=== PATIENT | male | born 1945 | race Caucasian/White ===

== ENCOUNTER 2019-07-21 12:58 | Observation (INO) | payer MEDICARE, OTHER ==
[~2019-07-21] VITALS: Ht 175.3 cm; Wt 70.0 kg
[~2019-07-21 12:58] MED LIST: ASPI81TA52 PO; ATOR20TA66 PO
[2019-07-21 13:54] LABS: BASOPHILS % (AUTO) 0.5 % (0-1); EOSINOPHILS # (AUTO) 0.1 X10'3 (0-0.9); EOSINOPHILS % (AUTO) 0.9 % (0-6); HEMATOCRIT 44.3 % (42.0-52.0); HEMOGLOBIN 15.2 g/dl (14.0-17.9); LYMPHOCYTES # (AUTO) 2.6 X10'3 (1.1-4.8); LYMPHOCYTES % (AUTO) 33.2 % (21-51); MEAN CORPUSCULAR HEMOGLOBIN 31.9 PG (27.0-31.0); MEAN CORPUSCULAR HGB CONC 34.2 g/dL (33.0-36.5); MEAN CORPUSCULAR VOLUME 93.1 FL (78-98); MEAN PLATELET VOLUME 7.9 FL (7.4-10.4); MONOCYTES # (AUTO) 0.7 X10'3 (0-0.9); MONOCYTES % (AUTO) 8.9 % (2-12); NEUTROPHILS # (AUTO) 4.5 X10'3 (1.8-7.7); NEUTROPHILS % (AUTO) 56.5 % (42-75); PLATELET COUNT 231 X10'3 (140-440); RED BLOOD COUNT 4.76 X10'6 (4.70-6.10)
[2019-07-21 14:06] LABS: ALANINE AMINOTRANSFERASE 37 U/L (12-78); ALBUMIN 4.1 G/DL (3.4-5.0); ALBUMIN/GLOBULIN RATIO 1.2 (1.1-1.5); ALKALINE PHOSPHATASE 86 IU/L (46-116); ANION GAP 4 (8-16); ASPARTATE AMINO TRANSFERASE 32 U/L (10-37); BILIRUBIN,TOTAL 0.7 MG/DL (0.1-1.0); BLOOD UREA NITROGEN 22 MG/DL (7-18); BUN/CREATININE RATIO 19.5 (5.4-32.0); CALCIUM 8.9 MG/DL (8.5-10.1); CHLORIDE 106 MMOL/L (99-107); CREATININE 1.13 MG/DL (0.60-1.10); GLUCOSE 85 MG/DL (70-104); POTASSIUM 4.5 MMOL/L (3.5-5.1); SODIUM 139 MMOL/L (135-145); TOTAL CARBON DIOXIDE 29.5 MMOL/L (24-32); TOTAL PROTEIN 7.4 G/DL (6.4-8.2); eGFR 64 ML/MIN
[2019-07-21] MEDS ORDERED: nitroGLYCERIN 1gm ointment UD TP ONE (15:45)
[2019-07-21] MEDS ORDERED: potassium Cl 20 mEq SR tablet PO PRN ×2 (15:55)
[2019-07-21] MEDS ORDERED: ipratropium/albuterol 3ml nebule NEB PRN (15:55)
[2019-07-21] MEDS ORDERED: magnesium 4gm in 100ml NS 100 ML IV PRN (15:55)
[2019-07-21] MEDS ORDERED: potassium CL 10mEq/100ml bag 100 ML IV PRN ×2 (15:55)
[2019-07-21] MEDS ORDERED: ondansetron/PF 4mg/2ml inj IV PRN (15:55)
[2019-07-21] MEDS ORDERED: magnesium 2GM in 50ml NS 50 ML IV PRN (15:55)
[2019-07-21] MEDS ORDERED: mag hydrox/Alum hydrox/simeth 30ml oral suspension PO PRN (15:55)
[2019-07-21] MEDS ORDERED: acetaminophen 325mg tablet PO PRN (15:55)
[2019-07-21] MEDS ORDERED: docusate sod 100mg capsule PO PRN (15:55)
[2019-07-21] MEDS ORDERED: ATOR40TA7 PO (16:46)
[2019-07-21 17:00] VITALS: BP 168/90
--- NOTE | 2019-07-21 17:15 | NUR ---
REFUSED MRSA SWAB.
[2019-07-21] MEDS ORDERED: metoprolol tartrate 1mg/ml inj IV PRN (17:45)
[2019-07-21] MEDS ORDERED: nitroGLYCERIN 0.4mg SUBLingual tab SL PRN (17:45)
[2019-07-21] MEDS ORDERED: aminophylline 250mg/10ml inj. IV PRN (17:45)
[2019-07-21] MEDS ORDERED: regadenoson 0.4mg/5ml syringe IV PRN (17:45)
--- NOTE | 2019-07-21 18:35 | NUR ---
Patient in room PCU 3016. I have received report from CHARLES Dobbins and had the opportunity to ask questions and assume patient care.
--- NOTE | 2019-07-21 18:39 | NUR ---
Problems reprioritized. Patient report given, questions answered & plan of care reviewed with CHARLES STARR.
[2019-07-21] MEDS ORDERED: hydrALAZINE 20mg/ml inj. IV PRN (19:35)
[2019-07-21] MEDS ORDERED: nitroGLYCERIN 0.4mg/hour patch TD SCH ×2 (19:35→19:38)
[2019-07-21 20:00] VITALS: BP_SYST 100; BP_SYST 104; BP_SYST 119; BP_DIAS 58; BP_DIAS 59; BP_DIAS 60
[2019-07-21] MEDS: K and/or MAG REPLACEMENT MC SCH (20:00)
[2019-07-21 20:29] LABS: CHOL/HDL RATIO 2.6 (0.00-4.99); CHOLESTEROL 121 MG/DL (0-200); HDL CHOLESTEROL 46 MG/DL (35-60); LDL CHOLESTEROL 63 MG/DL (50-100); TRIGLYCERIDES 78 MG/DL (20-135)
[2019-07-21] MEDS: normal saline 1000ml 1,000 ML IV SCH (22:18)
[2019-07-21 22:30] VITALS: BP 100/62
[2019-07-22] VITALS (11 sets, daily range): BP systolic 98–137; BP diastolic 53–67
[2019-07-22 02:13] LABS: HEMATOCRIT 41.9 % (42.0-52.0); HEMOGLOBIN 14.1 g/dl (14.0-17.9); MEAN CORPUSCULAR HEMOGLOBIN 31.1 PG (27.0-31.0); MEAN CORPUSCULAR HGB CONC 33.7 g/dL (33.0-36.5); MEAN CORPUSCULAR VOLUME 92.5 FL (78-98); MEAN PLATELET VOLUME 8.1 FL (7.4-10.4); PLATELET COUNT 211 X10'3 (140-440); RED BLOOD COUNT 4.53 X10'6 (4.70-6.10); RED CELL DISTRIBUTION WIDTH 13.1 % (11.5-14.5); WHITE BLOOD COUNT 9.2 X10'3 (4.5-11.0)
[2019-07-22 02:21] LABS: ALANINE AMINOTRANSFERASE 30 U/L (12-78); ALBUMIN 3.6 G/DL (3.4-5.0); ALBUMIN/GLOBULIN RATIO 1.3 (1.1-1.5); ALKALINE PHOSPHATASE 70 IU/L (46-116); ANION GAP 10 (8-16); ASPARTATE AMINO TRANSFERASE 28 U/L (10-37); BILIRUBIN,TOTAL 0.8 MG/DL (0.1-1.0); BLOOD UREA NITROGEN 19 MG/DL (7-18); BUN/CREATININE RATIO 16.5 (5.4-32.0); CALCIUM 8.6 MG/DL (8.5-10.1); CHLORIDE 105 MMOL/L (99-107); CREATININE 1.15 MG/DL (0.60-1.10); GLUCOSE 82 MG/DL (70-104); POTASSIUM 3.7 MMOL/L (3.5-5.1); SODIUM 142 MMOL/L (135-145); TOTAL CARBON DIOXIDE 26.6 MMOL/L (24-32); TOTAL PROTEIN 6.4 G/DL (6.4-8.2); eGFR 63 ML/MIN
--- NOTE | 2019-07-22 03:08 | NUR ---
Patient was feeling nauseous, had tingling bilat hands, and looked green in color. 12 lead EKG was obtained showing no changes from previous ekg. His BP was 100/58, HR 45-52, and he has a large headache rated 8/10. He also stated he had cold sweats.12 hr Troponin drawn and is negative. I removed the nitro patch. 10 minutes after removing the patch, the patient stated that his headache was gone, and he was feeling better.
--- NOTE | 2019-07-22 06:13 | NUR ---
Problems reprioritized. Patient report given, questions answered & plan of care reviewed with CHARLES Richmond.
--- NOTE | 2019-07-22 06:21 | NUR ---
Patient in room PCU 3016. I have received report from Sunitha SOTO and had the opportunity to ask questions and assume patient care.
[2019-07-22] MEDS: atorvastatin 20mg tablet PO SCH ×2 (07:50→08:44)
[2019-07-22] MEDS ORDERED: atorvastatin 20mg tablet PO SCH (08:00)
[2019-07-22] MEDS: K and/or MAG REPLACEMENT MC SCH (08:00)
[2019-07-22] MEDS ORDERED: enoxaparin 40mg/0.4ml syringe SQ SCH (08:00)
[2019-07-22] MEDS: normal saline 1000ml 1,000 ML IV SCH (08:45)
--- NOTE | 2019-07-22 13:31 | NUR ---
Dr. 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
[2019-07-22] MEDS ORDERED: LISI-604 PO (13:34)
--- NOTE | 2019-07-22 15:11 | NUR ---
Patient stable for discharge per MD order. All discharge information and education reviewed with patient before signing necessary paperwork. IV discontinued with catheter in tact, monitoring specialist removed and returned, patient belongings packed up and sent with patient. Wheeled down to lobby and driven in private vehicle by .
== END 2019-07-22 14:33 | disposition home or self-care (01) ==
LOC: ER 12:58 → ED HOLD 15:53 → EDBEDREQ 16:25 → PCU 3S 16:50
PROVIDERS: ADMIT Family Medicine; ATTEND Internal Medicine
DX: I16.1 Hypertensive emergency (principal); R55 Syncope and collapse; I11.0 Hypertensive heart disease with heart failure; I50.32 Chronic diastolic (congestive) heart failure; I25.10 Atherosclerotic heart disease of native coronary artery without angina pectoris; E78.5 Hyperlipidemia, unspecified; N28.9 Disorder of kidney and ureter, unspecified; M24.812 Other specific joint derangements of left shoulder, not elsewhere classified; M25.522 Pain in left elbow; I24.9 Acute ischemic heart disease, unspecified; I25.2 Old myocardial infarction; Z79.899 Other long term (current) drug therapy
CPT/HCPCS: 36415; 71045; 78452; 80053; 80061; 83735; 84484; 85025; 85027; 93005; 93017; 93306; 96360; 96361; 96372; 99285; A9500; G0378; J2785; J7030; J1650

== ENCOUNTER 2024-10-15 09:44 | Day surgery (SDC) | payer MEDICARE, OTHER ==
--- NOTE | 2024-10-08 14:05 | ELECTROCARDIOGRAPH REPORT ---
[facility] Test Date: 2024-10-08 Test Time: 14:03:27 Pat Name: LUCINDA DE OLIVEIRA Department: [facility]-PRE-OP Patient ID: [id number] Room: Gender: M Health Education Specialist: SOTERO : 1945 Requested By: FLORA BRASWELL Order Number: [id number] Reading MD: Dr. JORGE Deleon Measurements Intervals [place] Rate: 36 P: 59 TX: 178 QRS: 54 QRSD: 108 T: 57 QT: 487 QTc: 377 Interpretive Statements Sinus bradycardia Probable left atrial enlargement Anteroseptal infarct, old Electronically Signed On 10-08-2024 17:33:[address] JORGE Deleon Please click the below link to view image of tracing.
[~2024-10-15] VITALS: Ht 175.3 cm; Wt 67.9 kg
[2024-10-15] VITALS (8 sets, daily range): BP systolic 151–177; BP diastolic 80–95; PULSE 43–82; RESP 11–22; TEMP 97.5; O2SAT 98–100
[2024-10-15] MEDS: ceFAZolin 2gm/dext,iso 50mL 50 ML IV ONE (05:30)
[2024-10-15] MEDS: tranexamic acid 1gm/0.7% sal. 100 ML IV ONE (05:30)
[~2024-10-15 09:44] MED LIST changes: -ASPI81TA52 PO; +ATOR-411 PO; -ATOR20TA66 PO; +LIDOcaine 1% W/epiNEPHrine 1:100,000 20ml vial ONE; +epiNEPHrine 1 mg/ml 30ml MDV ONE; +oxymetazoline 15 ML nasal spray NS ONE; +salt irrigation nasal spray 45 ML SPRAY NS ONE
[2024-10-15] MEDS ORDERED: methylPREDNISolone acetate 80mg/ml inj**IM only ONE (09:49)
[2024-10-15] MEDS ORDERED: cocaine 4% topical solution 4ml bottle ONE (09:52)
[2024-10-15] MEDS: oxymetazoline 15 ML nasal spray NS ONE (10:27)
[2024-10-15] MEDS: ringers solution, lacted 1,000 ML IV SCH (10:28)
[2024-10-15] MEDS ORDERED: fentaNYL/PF 50MCG/1 ML 2ML syringe ONE (11:55)
[2024-10-15] MEDS ORDERED: midazolam 1 mg/ML 2ml injection ONE (11:56)
[2024-10-15] MEDS ORDERED: propofol inj 20 ML IV ONE (11:56)
[2024-10-15] MEDS ORDERED: dexamethasone sod phosphate 4mg/ml inj. ONE (12:55)
[2024-10-15] MEDS ORDERED: ondansetron/PF 4mg/2ml inj ONE (12:55)
[2024-10-15] MEDS ORDERED: rocuronium 10mg/ml inj IV ONE (12:55)
[2024-10-15] MEDS ORDERED: ringers solution, lacted 1,000 ML IV SCH (13:00)
[2024-10-15] MEDS ORDERED: ondansetron/PF 4mg/2ml inj IV PRN (13:00)
[2024-10-15] MEDS ORDERED: HYDROmorphone/PF 0.2 MG/ML SYRINGE IV PRN ×2 (13:00)
[2024-10-15] MEDS ORDERED: morphine 4 MG/ML inj SYRINge IV PRN (13:00)
[2024-10-15] MEDS: hydrALAZINE 20mg/ml inj. IV PRN (14:24)
--- NOTE | 2024-10-15 14:34 | OPERATIVE REPORT ---
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 PROCEDURES: * Septoplasty. * Submucous resection of right and left inferior turbinates. * Nasal endoscopy surgical with left middle meatal maxillary antrostomy with removal of tissue including a drainage of a mucopyocele. * Nasal endoscopy surgical with left ethmoidectomy with removal of hyperplastic tissue and bony obstruction. * Stereotactic computer-assisted navigational procedure, extracranial. SURGEON: Colby Dunbar MD ANESTHESIA: General endotracheal, Dr. Hilliard. HISTORY: The patient is a 79-year-old male with 50 years of purulent rhinorrhea and nasal airway obstruction. Recently, he has noticed a smell that he conveyed to me as "rotting fish." On physical examination, the septum was widely deviated to the left. The left middle meatal structures were bulging medially and the inferior turbinates were hypertrophic. CT scan confirmed complete opacification of the left maxillary and left ethmoid sinuses and the risks, alternatives, and benefits of surgery were explained to the patient and accepted. It should be noted that the patient had been treated with multiple courses of antibiotics without resolution. DESCRIPTION OF PROCEDURE: The patient was brought to the operating room, given general endotracheal anesthesia, and prepped and draped in the usual fashion. 1% Xylocaine with 1:100,000 epinephrine was infiltrated into the planned surgical site utilizing headlight and endoscope. Next, the patient was connected up to the image-guided system. The reason we had chosen to carry out this procedure under image guidance was the presence of disease up to the base of the skull and all along the lamina papyracea. The first procedure to be carried out was the septoplasty. A caudal incision was created on the left-hand side of the septum and a mucoperichondrial mucoperiosteal flap carefully elevated. A Darby knife was used to transect the quadrilateral cartilage just caudal to the caudal deflection and a mucoperichondrial mucoperiosteal flap elevated off the contralateral side. It should be noted that the patient had reduplication of the septum where the most posterior bony septum grew anteriorly and the cartilaginous septum grew posteriorly overlying each other. The dissection removed a good portion of the deviation off the left and the right was left intact. The septal leaves were then coapted using fibrin glue and 4-0 chromic on a P3 needle, which was also used to close the caudal incision. This yielded a midline septum. We then were able to turn our attention to the left-sided sinuses. As mentioned above, the bulla ethmoidalis and uncinate process were bulging medially. There was a great deal of inflammation and all recognizable anatomic sites were non-discernible. By palpation, we were able to palpate the soft wall of the left maxillary sinus medially and penetrated this wall with image-guided system being used for surgical orientation. As soon as this wall was penetrated, a great deal of pus emanated, thus, indicating we were within the maxillary sinus. We sequentially circumferentially opened up this opening to a greater and greater extent until we were able to identify the roof of the maxillary sinus. We then dissected in a retrograde fashion from sinus to intranasal until we were able to define the infundibulum, which was completely impacted with edematous tissue. This edematous tissue was removed and the infundibulum greatly enlarged at the expense of the posterior fontanelle creating a "large hole" middle meatal maxillary antrostomy. We then continued the dissection through the anterior and posterior ethmoid air cell systems removing granulation tissue and purulent secretions. At no time was the roof of the ethmoid or lamina papyracea penetrated. Cottonoids soaked in 1:1000 adrenaline were left in place as we turned our attention to the inferior turbinates, which underwent submucosal resection using the microshaver technique. In this technique, the anterior incision was made with a [place] blade and then a medial flap elevated off the left chondral bone and the hypertrophic submucosal stroma microshaved away. The medial flap was allowed to recede itself down upon the chondral bone and was held in place with a drop of fibrin glue. A submucous resection of the right inferior turbinate was carried out using the same techniques as described above, namely the microshaver technique. At the end of the procedure, hemostasis was intact. Bactroban water soluble ointment was used to fill the maxillary sinus. The ethmoid cavity was filled with PosiSep and the PosiSep was then expanded with thrombin. Two cottonoids were placed in each nasal cavity for pressure hemostasis. These will be removed in the recovery room, leaving the patient unpacked. The patient tolerated the procedure well with the accompaniment of minimal blood loss. A culture was taken of the mucopus that had been aspirated from the left maxillary sinus. Colby Dunbar MD TID: [id number] RECEIPT: [id number] LAM/DAVID cc: Edmond Encarnacion MD
[2024-10-15] MEDS: salt irrigation nasal spray 45 ML SPRAY NS PRN (14:36)
[2024-10-15] MEDS: mupirocin 2% nasal ointment 1gm UD NS STA (14:36)
--- NOTE | 2024-10-16 14:55 | PATHOLOGY REPORT ---
[facility] [address] [place] [address] SURGICAL PATHOLOGY REPORT CaseNumber: [id number] Surgeon:Colby Dunbar M.D. CLINICAL INFORMATION CLINICAL INFORMATION: Deviated septum. DIAGNOSIS DIAGNOSIS: A.SEPTUM, SURGICAL RESECTION - FRAGMENTS OF BONE AND CARTILAGE GROSSLY DESCRIBED DIAGNOSIS: B.SINUS CONTENTS AND TURBINATES, LEFT SIDE, SURGIC - MILD TO MODERATE SUBACUTE INFLAMMATION - NO ALLERGIC MUCIN IS IDENTIFIED - NO FUNGAL ELEMENTS OR OTHER INFECTIOUS AGENTS ARE IDENTIFIED - REACTIVE CHANGES WITHOUT DYSPLASTIC OR NEOPLASTIC FEATURES MICROSCOPIC DESCRIPTION A. SEPTUM, SURGICAL RESECTION MICROSCOPIC DESCRIPTION: Not performed. B. SINUS CONTENTS AND TURBINATES, LEFT SIDE, SURGIC MICROSCOPIC DESCRIPTION: Reviewed are two H&E-stain slides showing sections of fragments of respirato ry-type mucosa and submucosa associated with trabecular bone. There are areas associated with mild t o moderate edema with mild vascular congestion. Some areas are associated with mildly increased numb ers of chronic inflammatory cells and mild reactive changes. Neutrophils are mildly increased in tony e areas. Eosinophils are not significantly increased. No allergic mucin is identified. No fungal e lements or other infectious agents are identified. GROSS DESCRIPTION A. SEPTUM, SURGICAL RESECTION GROSS DESCRIPTION: Received in a container of formalin labeled with the patient's name, number, and " septal fragments" is a 2.5 cm aggregate of irregularly shaped pieces of flat bone and associated cart ilage. A discrete mass lesion is not identified. No sections. (meb) B. SINUS CONTENTS AND TURBINATES, LEFT SIDE, SURGIC GROSS DESCRIPTION: Received in a container of formalin labeled with the patient's name, number, and " left sided sinus and turbinates" is a 3.5 cm aggregate of irregularly shaped pieces of bone and pink- valencia to valencia soft tissue. The specimen is decalcified and entirely submitted as B1-B2. The time at [facility] h the specimen was removed was 1300. The time at which the specimen was placed in formalin was 1302. (meb) Electronically signed by: Yariel Rayo M.D. 10/16/2024 2:22:00 PM
== END 2024-10-15 15:16 | disposition home or self-care (01) ==
LOC: PAS 09:44
PROVIDERS: ATTEND Otolaryngology
DX: J34.2 Deviated nasal septum (principal); J34.3 Hypertrophy of nasal turbinates; J32.9 Chronic sinusitis, unspecified; I25.2 Old myocardial infarction
CPT/HCPCS: 30140; 30520; 31255; 31267; 61782; 82948; 87070; 87075; 87102; 93005; A4618; A6402; A7000; J0169; J0360; J1010; J1100; J2250; J2405; J2704; J3010; J3490; J7030; J7040; J7120; Z7506; Z7508; Z7512; Z7610; 87077; 87186; A6449